=== PATIENT | female | born 1990 | race Caucasian/White ===

== ENCOUNTER → 2018-09-29 14:46 | Outpatient (CLI) | payer OTHER, SELFPAY ==
[2018-09-29 15:54] LABS: Add Manual Diff / Slide Review NO; Basophils Absolute Auto 0 /uL (0-100); Basophils Percent Auto 0.3 % (0-2); Eosinophils Absolute Auto 100 /uL (0-450); Eosinophils Percent Auto 1.1 % (2-4); Hematocrit 39.8 % (36-46); Hemoglobin 13.7 g/dL (12.0-16.0); Lymphocytes Absolute Auto 3100 /uL (1100-4500); Mean Corpuscular HGB Conc 34.3 % (30-36); Mean Corpuscular Hemoglobin 33.3 PG (26-34); Mean Corpuscular Volume 96.8 fL (80-100); Monocytes Absolute Auto 800 /uL (0-900); Monocytes Percent Auto 6.3 % (3-14); Neutrophils Absolute Auto 8900 /uL (1500-7000); Neutrophils Percent Auto 68.3 % (50-75); Platelet Count 339 X10^3/uL (150-400); Red Blood Cell Count 4.11 X10^6/uL (4.0-5.2); White Blood Cell Count 13.1 X10^3/uL (4.5-11.0)
[2018-09-29 15:56] LABS: Appearance Urine UA SL CLOUDY; Bilirubin Urine UA NEGATIVE (NEGATIVE); Color Urine UA YELLOW; Glucose Urine UA NEGATIVE (Negative); Ketones Urine UA 1+ (NEGATIVE); Leukocyte Esterase Urine UA 1+ (NEGATIVE); Nitrite Urine UA NEGATIVE (Negative); Occult Blood Urine UA NEGATIVE (Negative); Protein Urine UA NEGATIVE (Negative); Urobilinogen Urine UA 0.2 E.U./dL (0.2); pH Urine UA 5.5 (4.5-8.0)
[2018-09-29 16:17] LABS: Bacteria Urine Few (2-10); RBC Urine 1-5/HPF (0-5/HPF); Squamous Epithelial Cell Urine 1-5 /HPF (0-5/HPF); WBC Urine 1-5/HPF (0-5/HPF)
[2018-09-29 17:26] LABS: Hepatitis B Surface Antigen NEGATIVE s/c (NEGATIVE)
[2018-09-29 17:35] LABS: HIV 1 and 2 Antibody NEGATIVE (NEGATIVE); Hep C Virus Ab w/Reflex Quant NEGATIVE s/c (NEGATIVE)
[2018-10-01 14:28] LABS: RPR Screen Nonreactive (Nonreactive)
[2018-10-02 18:53] LABS: Clinical Signs and Symptoms NO; Pregnant YES; Travel in Zika Region YES; Zika Virus AB IgM NEGATIVE
== END ==
PROVIDERS: Visit Provider Specialist
DX: Z34.91 Encounter for supervision of normal pregnancy, unspecified, first trimester (principal); Z20.821 Contact with and (suspected) exposure to Zika virus
CPT/HCPCS: 36415; 80055; 81003; 81015; 86703; 86787; 86794; 86803; 86850; 86900; 86901; 87077; 87086; 87662

== ENCOUNTER → 2019-04-06 14:29 | Outpatient (CLI) | payer OTHER, SELFPAY ==
[2019-04-07 15:38] LABS: Strep Grp B PCR NEG for Grp B Strep
== END ==
PROVIDERS: Visit Provider Specialist
DX: Z34.03 Encounter for supervision of normal first pregnancy, third trimester (principal)
CPT/HCPCS: 87653

== ENCOUNTER 2019-05-09 13:21 | Inpatient (IN) | payer OTHER, SELFPAY ==
[2019-05-09] MEDS: LACTATED RINGERS 1,000 ML 100 ML IV (14:20)
[2019-05-09 14:33] LABS: Add Manual Diff / Slide Review NO; Basophils Absolute Auto 100 /uL (0-100); Basophils Percent Auto 0.5 % (0-2); Eosinophils Absolute Auto 100 /uL (0-450); Eosinophils Percent Auto 0.5 % (2-4); Hemoglobin 13.5 g/dL (12.0-16.0); Lymphocytes Absolute Auto 2000 /uL (1100-4500); Mean Corpuscular HGB Conc 35.5 % (30-36); Monocytes Absolute Auto 500 /uL (0-900); Monocytes Percent Auto 4.4 % (3-14); Neutrophils Absolute Auto 8400 /uL (1500-7000); Neutrophils Percent Auto 76.6 % (50-75); Platelet Count 207 X10^3/uL (150-400); Red Blood Cell Count 4.09 X10^6/uL (4.0-5.2); Red Cell Distribution Width 13.2 % (11.6-14.8)
[2019-05-09] MEDS: miSOPROStoL 25 MCG TABLET VAG (14:38)
--- NOTE | 2019-05-09 15:26 | P.HPOB_ITS ---
OB HPI Date/Time Date of admission: 05/09/19 Date Patient Seen: 05/09/19 Time Patient Seen: 15:26 History of Present Condition Chief complaint: labor : 1 Para: 0 Estimated Date of Delivery: 05/08/19 Estimated Gestational Age (weeks): 40 Narrative: Charis Navarro is a 28 year old female admitted for spontan eous rupture membranes without active labor Indications Other reason(s) for admission: Leakage of fluid without actively joseph History of Present care: good care, initiated at week # (8), number of visits (10) and pounds weight gain (14) Dating criteria: based on 1st trimester US only Ultrasounds: normal mid trimester US Obstetrical complications: none Medical complications: none Preadmission Labs Blood type: A (+) positive -: Antibody screen: negative, GBS status: negative, HBsAG: negative, HIV: negative and RPR/VDLR: negative -: Chlamydia screen: not detected and Gonorrhea screen: not detected -: Rubella: immune and Varicella: immune HCAB: negative PAP: Normal Quad screen: Normal 1 hr GTT: 151 3 hr GTT: 1 hr (122), 2 hr (95) and 3 hr (50) Fasting blood glucose: 81 Evaluation Evaluation Baseline heart rate: 120 Variability: Moderate (11-25) monitor accelerations: Present monitor decelerations: Absent Contraction Frequency (minutes): 0 Category of Tracing: I Cervical dilation (cm): 0 Cervical effacement (%): 50 station: -3 Laboratory results: Laboratory Tests 05/09/19 14:20 WBC 11.0 RBC 4.09 Hgb 13.5 Hct 38.0 MCV 93.0 MCH 33.0 MCHC 35.5 RDW 13.2 Plt Count 207 Neut % (Auto) 76.6 H Lymph % (Auto) 18.0 L [place] % (Auto) 4.4 Eos % (Auto) 0.5 L Baso % (Auto) 0.5 Neut # (Auto) 8400 H Lymph # (Auto) 2000 [place] # (Auto) 500 Eos # (Auto) 100 Baso # (Auto) 100 Non-invasive Membranes Rupture Test: positive [facility] Medical History (Updated 05/09/19 @ 16:40 by Cristal Ly MD) Herniated intervertebral disc (Acute ~2013) Social History Smoking Status: Former smoker Meds Home Medications and Allergies Home Medications Medication Instructions Recorded Confirmed Type prenat.vits,alessio,poy-ctse-pucxh 1 tab PO DAILY 09/29/18 09/29/18 History breast pump #1 each 02/09/19 02/09/19 Rx Allergies Allergy/AdvReac Type Severity Reaction Status Date / Time No Known Drug Allergies Allergy Verified 09/29/18 13:31 Review of Systems Review of Systems Narrative: Patient was having some increased contractions. She had some fluid leaking out several times from vagina but then both stopped. Good movement. No headaches, scotomata, epigastric pain. No fevers. ROS Unobtainable: All systems reviewed & are unremarkable except as noted in HPI and below Exam Narrative Exam Narrative: HEENT exam within normal limits. Lungs are clear to aus cultation percussion. Heart is regular rate and rhythm no S3-S4 or murmurs. Abdomen is soft, nontender. Extremities without edema and nontender. Objective Labs Result Diagrams: 05/09/19 14:20 Labs: Laboratory Results - last 24 hr 05/09/19 14:20 WBC 11.0 RBC 4.09 Hgb 13.5 Hct 38.0 MCV 93.0 MCH 33.0 MCHC 35.5 RDW 13.2 Plt Count 207 Neut % (Auto) 76.6 H Lymph % (Auto) 18.0 L [place] % (Auto) 4.4 Eos % (Auto) 0.5 L Baso % (Auto) 0.5 Neut # (Auto) 8400 H Lymph # (Auto) 2000 [place] # (Auto) 500 Eos # (Auto) 100 Baso # (Auto) 100 Assessment and Plan Assessment and Plan Assessment and Plan narrative: 40 week gestation with spontaneous rupture membranes not in active labor and non favorable cervix. Plan is for Cytotec x3 if needed and Pitocin in a.m. if needed. Monitor for signs of infection Time Spent with Patient Total time spent with greater than 50% in coordination of care (as documented) at patient's floor/unit and/or counseling patient:: less than 15 minutes
[2019-05-09 16:07] VITALS: BP 125/71
[2019-05-09 22:01] VITALS: TEMP 35.8
[2019-05-09] MEDS: fentaNYL 100 MCG/2 ML INJ IV (22:01)
[2019-05-09] MEDS: ZOLPIDEM 5 MG TABLET PO (23:47)
[2019-05-10] MEDS: fentaNYL 100 MCG/2 ML INJ IV ×2 (01:51→05:35)
[2019-05-10] MEDS: miSOPROStoL 25 MCG TABLET VAG (02:24)
[2019-05-10] MEDS: OXYTOCIN PREMIX 30 UNIT/500 ML PLAST..BAG IV (09:05)
[2019-05-10] MEDS: LACTATED RINGERS 1,000 ML 100 ML IV (09:12)
[2019-05-10 12:26] LABS: Platelet Count 224 X10^3/uL (150-400)
--- NOTE | 2019-05-10 15:56 | P.PCNOB_ITS ---
Events: Prolonged Rupture of Membrane Labor & Delivery Delivery date: 05/10/19 Intrapartal events: None Cervical ripening method: per misoprostal protocol Induction method: per pitocin protocol Delivery monitor: external FHT and external uterine Route of delivery: L&D Laceration Description: Perineal - 2nd Degree Delivery repair: vicryl (0) and chromic (3 0) Estimated blood loss (mL): 300 Anesthesia type: Epidural Narrative: Patient arrived on Labor and delivery with leakage of fluid but not in active labor. She received Cytotec followed by Pitocin induction. She remained afebrile throughout labor. She received an epidural catheter for pain control. heart tones category 1 to category 2 throughout labor. She had a spontaneous vaginal delivery of a viable female . The infant was placed on the maternal abdomen. After the cord stopped pulsating the cord was clamped, cut, and cord bloods obtained. The placenta delivered spontaneously, intact, with 3 vessels. There were no cervical or vaginal tears. A second-degree perineal tear was repaired in 2 layers. The rectal sphincter was reinforced with [id number] suture of 0 Vicryl x2. The rest of the repair was done with 3 0 chromic suture in the usual 2 layer fashion. Estimated blood loss 300 cc. Both infant and mother doing well. [place] Baby 1: gender: Female Presentation: vertex position: Right Occiput Anterior Placenta delivery description: Spontaneous cord vessel description: 3 Vessels score (1 min): 9 score (5 min): 9 Plan for aftercare: Routine post vaginal delivery
[2019-05-10] MEDS: IBUPROFEN 600 MG TABLET PO (20:47)
[2019-05-11] MEDS: IBUPROFEN 600 MG TABLET PO ×2 (05:18→10:50)
[2019-05-11 05:29] LABS: Add Manual Diff / Slide Review NO; Basophils Absolute Auto 0 /uL (0-100); Basophils Percent Auto 0.3 % (0-2); Eosinophils Absolute Auto 100 /uL (0-450); Eosinophils Percent Auto 0.5 % (2-4); Hematocrit 32.5 % (36-46); Hemoglobin 11.5 g/dL (12.0-16.0); Lymphocytes Absolute Auto 3100 /uL (1100-4500); Lymphocytes Percent Auto 20.4 % (25-40); Mean Corpuscular HGB Conc 35.3 % (30-36); Mean Corpuscular Hemoglobin 33.1 PG (26-34); Mean Corpuscular Volume 93.6 fL (80-100); Monocytes Absolute Auto 1600 /uL (0-900); Monocytes Percent Auto 10.5 % (3-14); Neutrophils Absolute Auto 10300 /uL (1500-7000); Neutrophils Percent Auto 68.3 % (50-75); Platelet Count 197 X10^3/uL (150-400); Red Blood Cell Count 3.48 X10^6/uL (4.0-5.2); White Blood Cell Count 15.1 X10^3/uL (4.5-11.0)
[2019-05-11] MEDS: ACETAMINOPHEN 325 MG TABLET 650 MG PO ×2 (07:43→14:29)
[2019-05-11] MEDS: DOCUSATE 100 MG CAPSULE PO (07:43)
--- NOTE | 2019-05-11 12:20 | PM.OBDS.1 ---
Discharge Providers Provider Date of admission: 05/09/19 13:21 Discharge Date: 05/11/19 Consults: 05/09/19 13:43 Consult to Anesthesiology Urgent Comment: Consulting Provider: Anesthesiologist Reason for consultation: Epidural Has provider been notified: No 05/11/19 15:53 Consult to Pin Machine Tender Routine Comment: Discharge provider: Cristal Ly MD Summary Hospital Course Date Patient Seen: 05/11/19 Time Patient Seen: 12:25 Hospital Course: Patient was sent to Labor and delivery after positive fern test for rupture membranes. She received prostaglandins followed by Pitocin to induce labor. She received an epidural catheter for pain control. heart tones category 1 to category 2 throughout labor. She had a spontaneous vaginal delivery of a viable female weighing 6 lb 6 oz. She had a second-degree tear that was repaired. She did well post . Peripartum Data Infant Delivery Method: Natural Vaginal Laceration description: Perineal - 2nd Degree Procedures: Prostin and Pitocin induction, epidural catheter, spontaneous vaginal delivery, repair of second-degree tear. complications: none [place] 1: Gender: Female Disposition of : home Discharge Diagnosis (1) Vaginal delivery: Status: Acute Status at Discharge Cognitive/behavioral status at discharge: oriented Functional status at discharge: independent ambulation Overall status at discharge: patient is back to baseline Time Spent with Patient Time attestation: Total time spent providing and/or coordinating discharge services: Time spent: Less than 30 minutes Objective Labs Result Diagrams: 05/11/19 05:13 Labs: Laboratory Results - last 24 hr 05/10/19 05/11/19 12:15 05:13 WBC 15.1 H RBC 3.48 L Hgb 11.5 L Hct 32.5 L MCV 93.6 MCH 33.1 MCHC 35.3 RDW 13.0 Plt Count 224 197 Neut % (Auto) 68.3 Lymph % (Auto) 20.4 L [place] % (Auto) 10.5 Eos % (Auto) 0.5 L Baso % (Auto) 0.3 Neut # (Auto) 24343 H Lymph # (Auto) 3100 [place] # (Auto) 1600 H Eos # (Auto) 100 Baso # (Auto) 0 Exam Vital Signs (past 8 hours): Blood pressure 97/62, pulse 63, temperature 98.0? Narrative Exam Narrative: Abdomen is soft, nontender. Uterus is firm, at U, nontender. Repair is intact. Mild lochia. Extremities with out edema and nontender. Patient's blood type is A positive, she is rubella immune, she received Tdap in the 3rd trimester. Discharge Plan Discharge Plan Patient Disposition: Home Discharge orders & Medications Prescriptions: New docusate sodium [DOK] 100 mg Capsule 100 mg PO DAILY Qty: 20 RF: 0 ibuprofen 600 mg Tablet 600 mg PO Q6HR PRN (Reason: Fever/Mild Pain (1-3)) Qty: 30 RF: 0 Continued prenat.vits,alessio,yko-jncq-opxrb tablet 1 tab PO DAILY RF: 0 No Action (DME) breast pump [Pump In Style Advanced] device See Rx Instructions [id number] .MEDSUPPLY Qty: 1 RF: 0 Follow up/Referrals: Cristal Ly MD [Physician] - Diet/Activity/Treatments Diet: Regular Activity: Nothing in vagina for 4 weeks Skin/Wound/Dressing Care Report to your healthcare provider any signs of infection, such as:: chills, fever and increased pain
[2019-05-11 12:32] VITALS: BP 97/62; PULSE 63; RESP 16; TEMP 36.6
== END 2019-05-11 15:40 | disposition home or self-care (01) | DRG 807 ==
PROVIDERS: Anesthesiology; Admitting Provider Specialist; Visit Provider Specialist
DX: O63.0 Prolonged first stage (of labor) (principal); Z37.0 Single live birth; Z3A.40 40 weeks gestation of pregnancy; O70.1 Second degree perineal laceration during delivery
CPT/HCPCS: 01967; 36415; 59050; 59400; 85025; 85049; 86850; 86900; 86901; G0379; J2590; J3010

== ENCOUNTER → 2020-09-20 10:14 | Outpatient (CLI) | payer OTHER, MEDICAID, SELFPAY ==
[2020-09-20 11:04] LABS: Add Manual Diff / Slide Review NO; Basophils Absolute Auto 100 /uL (0-100); Basophils Percent Auto 0.5 % (0-2); Eosinophils Absolute Auto 200 /uL (0-450); Eosinophils Percent Auto 1.6 % (2-4); Hematocrit 38.7 % (36-46); Hemoglobin 13.7 g/dL (12.0-16.0); Lymphocytes Absolute Auto 2500 /uL (1100-4500); Lymphocytes Percent Auto 20.5 % (25-40); Mean Corpuscular HGB Conc 35.4 % (30-36); Mean Corpuscular Hemoglobin 32.3 PG (26-34); Mean Corpuscular Volume 91.3 fL (80-100); Monocytes Absolute Auto 800 /uL (0-900); Monocytes Percent Auto 6.8 % (3-14); Neutrophils Absolute Auto 8500 /uL (1500-7000); Neutrophils Percent Auto 70.6 % (50-75); Platelet Count 328 X10^3/uL (150-400); Red Blood Cell Count 4.23 X10^6/uL (4.0-5.2); Red Cell Distribution Width 12.6 % (11.6-14.8)
[2020-09-20 11:08] LABS: Hemoglobin A1C% w Est Avg Glu 4.6 % (4.0-6.0)
[2020-09-20 12:08] LABS: Hepatitis B Surface Antigen NEGATIVE s/c (NEGATIVE); Rubella Antibody IgG 14.4 IU/mL (>15)
[2020-09-20 12:24] LABS: HIV 1 & 2 Ab/Ag 4th Gen Combo NEGATIVE (NEGATIVE); Hep C Virus Ab w/Reflex Quant NEGATIVE s/c (NEGATIVE)
[2020-09-20 12:47] LABS: Appearance Urine UA SL CLOUDY; Bilirubin Urine UA NEGATIVE (NEGATIVE); Color Urine UA YELLOW; Glucose Urine UA NEGATIVE (Negative); Ketones Urine UA NEGATIVE (NEGATIVE); Leukocyte Esterase Urine UA 3+ (NEGATIVE); Nitrite Urine UA NEGATIVE (Negative); Occult Blood Urine UA NEGATIVE (Negative); Protein Urine UA NEGATIVE (Negative); Specific Gravity Urine UA 1.015 (1.000-1.035); Urobilinogen Urine UA 0.2 E.U./dL (0.2)
[2020-09-20 12:50] LABS: RBC Urine None Seen (0-5/HPF)
[2020-09-20 12:56] LABS: Amorphous Sediment Urine 1+; Bacteria Urine Few (2-10); Squamous Epithelial Cell Urine 5-10 /HPF (0-5/HPF); WBC Urine 5-10/HPF (0-5/HPF)
[2020-09-21 07:39] LABS: RPR Screen Non Reactive (Non Reactive)
[2020-09-21 08:09] LABS: Varicella IgG Antibody 1039 index (Immune >165)
== END ==
PROVIDERS: Referring Provider Specialist; Visit Provider Specialist
DX: Z34.81 Encounter for supervision of other normal pregnancy, first trimester (principal)
CPT/HCPCS: 36415; 80055; 81003; 81015; 83036; 86787; 86803; 86850; 86900; 86901; 87086; 87389

== ENCOUNTER → 2020-12-12 09:45 | Outpatient (CLI) | payer OTHER, SELFPAY ==
--- NOTE | 2020-12-12 09:46 | DI.US.S_ITS ---
PROCEDURE: US OB >= 14 WEEKS FETUS INDICATIONS: ANATOMY OUTSIDE/PRIOR DATING DATA: Last menstrual period (LMP): 07/17/2020. LMP-based estimated date of delivery (JOHNNY): 04/23/2021. First dating scan (date and location): 09/20/2020. Estimated date of delivery (JOHNNY) from first dating scan: . TECHNIQUE: Real-time scanning was performed of the fetus, with image documentation and biometric measurements. COMPARISON: [facility], , OB <= 14 WEEKS FETUS, 09/20/2020, 10:07. FINDINGS: General: A single living intrauterine gestation is present. Presentation: Breech Placenta: Placental position is posterior, without previa. Amniotic fluid index: 14.9 cm, normal range is 5-24 cm. heart rate: 143 beats per minute. Maternal cervical canal: 5.4 cm long. Normal lower limit is 2.5 cm. biometrics: Biparietal diameter: 5.1 cm, 21 weeks, 4 days Head circumference: 19.2 cm, 21 weeks, 3 days Abdominal circumference: 16.1 cm, 21 weeks, 1 day Femur length: 3.4 cm, 20 weeks, 5 day Estimated gestational age from initial scan: 21 weeks, 0 day Composite gestational age from present scan: 21 weeks, 2 days Estimated weight and percentile: 395 grams, 47 percent Measurement variability for biometric dating: +/- 7 days from 14 weeks to 15 weeks 6 days gestation, +/- 10 days from 16 weeks to 21 weeks 6 days gestation, +/- 2 weeks from 22 weeks to 27 weeks 6 days gestation, +/- 3 weeks for 28 weeks gestation or later. weight reference: 4500 g or EFW >90/95% is considered macrosomia or large for gestational age. EFW <10% is small for gestational age. EFW 5% or less is considered intra-uterine growth restriction. Anatomic survey: Neuro: Ventricles are non-dilated at less than 10 mm. Cisterna magna is normal at 3-11 mm. Cerebellum is normal in size and morphology. Nuchal skin fold: Normal at less than 6 mm between 14-21 weeks gestational age. Face: Nose and lips, facial profile are normal. Spine: No evidence for spina bifida. Heart: 4-chambered heart is present, with normal ventricular outflow tracts. Diaphragm: Diaphragm is intact. Stomach: Left-sided stomach is present. Kidneys: No hydronephrosis. Normal is less than 5 mm in 2nd trimester, less than 7 mm in 3rd trimester. Cord: 3-vessel cord has orthotopic insertion. Bladder: Normal in size. Extremities: All 4 extremities identified. IMPRESSION: 1. Single live intrauterine with fetus in breech presentation. heart rate is 143 beats per minute. 2. Normal amount of amniotic fluid and normal growth. Estimated weight is at 47th percentile. 3. Normal anatomic survey. Dictated by: Umair Huber M.D. on 12/12/2020 at 11:34 Approved by: Umair Huber M.D. on 12/12/2020 at 11:38
== END ==
PROVIDERS: Referring Provider Specialist; Visit Provider Specialist
DX: Z34.82 Encounter for supervision of other normal pregnancy, second trimester (principal); Z3A.20 20 weeks gestation of pregnancy
CPT/HCPCS: 76811

== ENCOUNTER → 2021-04-03 09:53 | Outpatient (CLI) | payer OTHER, SELFPAY ==
[2021-04-04 08:39] LABS: Strep Grp B PCR NEG for Grp B Strep
== END ==
PROVIDERS: Visit Provider Specialist
DX: Z34.83 Encounter for supervision of other normal pregnancy, third trimester (principal); Z3A.37 37 weeks gestation of pregnancy
CPT/HCPCS: 87653

== ENCOUNTER 2021-04-18 19:59 | Inpatient (IN) | payer OTHER, SELFPAY ==
[2021-04-18 20:36] VITALS: BP 118/75
[2021-04-18 21:37] LABS: Add Manual Diff / Slide Review NO; Basophils Absolute Auto 100 /uL (0-100); Basophils Percent Auto 0.5 % (0-2); Eosinophils Absolute Auto 100 /uL (0-450); Eosinophils Percent Auto 0.6 % (2-4); Hematocrit 35.5 % (36-46); Hemoglobin 12.2 g/dL (12.0-16.0); Lymphocytes Absolute Auto 2700 /uL (1100-4500); Lymphocytes Percent Auto 20.5 % (25-40); Mean Corpuscular HGB Conc 34.4 % (30-36); Mean Corpuscular Hemoglobin 32.4 PG (26-34); Mean Corpuscular Volume 94.2 fL (80-100); Monocytes Absolute Auto 800 /uL (0-900); Monocytes Percent Auto 6.2 % (3-14); Neutrophils Absolute Auto 9500 /uL (1500-7000); Neutrophils Percent Auto 72.2 % (50-75); Platelet Count 198 X10^3/uL (150-400); Red Blood Cell Count 3.77 X10^6/uL (4.0-5.2); Red Cell Distribution Width 13.4 % (11.6-14.8); White Blood Cell Count 13.1 X10^3/uL (4.5-11.0)
[2021-04-18] MEDS: DINOPROSTONE VAG (CERVIDIL) 10 MG VAG (21:40)
[2021-04-18 22:27] LABS: COVID19 -Nasal RAPID Negative (Negative)
[2021-04-18] MEDS: ZOLPIDEM 5 MG TABLET PO (23:00)
[2021-04-19] MEDS: ACETAMINOPHEN 325 MG TABLET 650 MG PO ×2 (04:48→16:48)
--- NOTE | 2021-04-19 05:24 | PM.OBHP.1 ---
OB HPI Date/Time Date of admission: 04/18/21 Date Patient Seen: 04/19/21 Time Patient Seen: 05:24 History of Present Condition Chief complaint: induction : 2 Para: 1 Estimated Date of Delivery: 04/24/21 Estimated Gestational Age (weeks): 39 Narrative: Charis Navarro is a 30 year old female admitted for induction for distance from the hospital Indications Indication for induction OB: maternal distance History of Present care: good care, initiated at week # (9), number of visits (12) and pounds weight gain (11) Dating criteria: LMP confirmed by 1st trimester US Ultrasounds: normal mid trimester US Obstetrical complications: none Medical complications: none Preadmission Labs Blood type: A (+) positive -: Antibody screen: negative, GBS status: negative, HBsAG: negative, HIV: negative and RPR/VDLR: negative -: Chlamydia screen: not detected and Gonorrhea screen: not detected -: Rubella: not immune and Varicella: immune HCAB: negative 1 hr GTT: 135 Prior (ies) History: 05/10/2019 40 week gestation 6 lb 6 oz female vaginal Evaluation Evaluation Baseline heart rate: 120 Variability: Moderate (11-25) monitor accelerations: Present Monitor Decelerations: Absent Contraction Frequency (minutes): 3 Uterine Contraction Intensity: Mild Category of Tracing: Reactive Status: Category l Dilation (cm): 0 Effacement (%): 50 Dilation: Closed Effacement: 40-50% station: -2 Position of cervix: mid Consistency: medium Leon score: 4 PFSH Medical History (Updated 09/13/20 @ 11:28 by Beronica Chandler RN) Asthma (~1994) Closed right ankle fracture (~1998) Herniated intervertebral disc (~2013) anxiety (~04/2019) depression (~04/2019) Vaginal delivery Wrist fracture, left (~2001) Surgical History (Updated 09/13/20 @ 11:18 by Beronica Chandler RN) [place] teeth extracted (~2004) Family History (Updated 09/13/20 @ 11:45 by Beronica Chandler RN) Mother Hypertension Diabetes mellitus Father Diabetes mellitus Grandmother No problems noted. Grandfather Myocardial infarction Grandmother No problems noted. Grandfather Staphylococcal infection Social History marital status: number of children: 1 household members: spouse, family ([id number]) and children lives independently: Yes caregiver/support person: No housing: house pets and animals: Yes (1 cat: aware. ) education level: college (BS [employer]) occupational status: employed ([employer]) current occupational exposures/hazards: No special eze needs: No seatbelt use: always do you feel safe at home: Yes Smoking Status: Former smoker Tobacco: How many years used: 4 quit status: has quit before (Quit in 2019. ) second hand exposure: No alcohol intake: former (Pre-: glass of wine with dinner, not too much or too often.) substance use type: does not use during the past year weight has: increased > 10 lbs well-balanced diet: daily or most days daily servings fruits/ve-4 caffeine: Yes (1 cup/day. Quit Diet Coke. ) Type(s) of exercise: walking (1.5-2 miles daily), regular exercise (Rowing machine. 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 ) frequency: daily duration: 30-45 minutes/day Meds Home Medications and Allergies Home Medications Medication Instructions Recorded Confirmed Type prenat.vits,alessio,uqs-qyhy-utfnr 1 tab PO DAILY 09/29/18 04/18/21 History Double Electric breast Pump and #1 ea 02/27/21 04/18/21 Rx Supplies Allergies Allergy/AdvReac Type Severity Reaction Status Date / Time No Known Drug Allergies Allergy Verified 09/20/20 09:50 Review of Systems Review of Systems Narrative: No headaches, scotomata, epigastric pain. Good movement. No leakage of fluid. No labor symptoms. OB Exam Narrative Exam Narrative: Blood pressure 98/55, temperature 36.6?, pulse of 80 HEENT exam within normal limits, lungs are clear to auscultation and percussion. Heart is regular rate and rhythm no S3-S4 murmurs. Abdomen is gravid. Fetus is vertex. Extremities without edema and nontender. Objective Labs Result Diagrams: 04/18/21 21:20 Labs: Laboratory Results - last 24 hr 04/18/21 04/18/21 04/18/21 21:20 21:20 21:20 WBC 13.1 H RBC 3.77 L Hgb 12.2 Hct 35.5 L MCV 94.2 MCH 32.4 MCHC 34.4 RDW 13.4 Plt Count 198 Neut % (Auto) 72.2 Lymph % (Auto) 20.5 L [place] % (Auto) 6.2 Eos % (Auto) 0.6 L Baso % (Auto) 0.5 Neut # (Auto) 9500 H Lymph # (Auto) 2700 [place] # (Auto) 800 Eos # (Auto) 100 Baso # (Auto) 100 SARS-CoV-2 (PCR) Negative Blood Type A Positive Antibody Screen Negative Assessment and Plan Assessment and Plan Assessment and Plan narrative: 39 week gestation living distance from the hospital who was admitted for induction with Cervidil followed by Pitocin. Anticipate vaginal delivery.
[2021-04-19] MEDS: LACTATED RINGERS 1,000 ML 100 ML IV ×2 (11:40→19:27)
[2021-04-19] MEDS: OXYTOCIN PREMIX 30 UNIT/500 ML PLAST..BAG IV (11:41)
--- NOTE | 2021-04-19 14:41 | PM.OBPNLAB ---
Date/Time Date Patient Seen: 04/19/21 Time Patient Seen: 14:41 Pain Control Pain control: tolerating well Pelvic Exam Effacement (%): 50 station: -2 Contractions Contractions on admission: regular Monitor mode: External Pitocin rate (mU/min): 15 Contraction frequency (min): 3 Contraction duration (min): 1 Contraction pattern: Regular Contraction intensity: Moderate Status status: Category l Heart Rate Baseline: 125 Monitor Accelerations: Present Monitor Decelerations: Absent Monitor Variability: Moderate Assessment and Plan Assessment: induction ongoing Plan: continuous present management
[2021-04-19] MEDS: fentaNYL 100 MCG/2 ML INJ IV (17:30)
--- NOTE | 2021-04-19 19:44 | PM.AN.REGBLK ---
Regional Block Pre-procedure Procedure: Continuous Lumbar Epidural for L&D Attending OB provider: Cristal Ly PMH/ROS narrative: Hx: No personal or family history of anesthesia problems. PSH/Anesthesia history narrative: previous epidural with good result Exam narrative: MP2, RRR, CTAB ASA Class: II Labs: Hct 35.5 % (36-46) L 04/18/21 21:20 Plt Count 198 X10^3/uL (150-400) 04/18/21 21:20 Medications: Current Medications Generic Name Dose Route Start Last Admin Trade Name Freq PRN Reason Stop Dose Admin Acetaminophen 650 mg 04/18/21 20:15 04/19/21 16:48 Acetaminophen 325 Mg Tablet PO 650 mg Q4HR PRN Administration Fever/Mild Pain (1-3) Calcium Carbonate 1,000 mg 04/18/21 20:15 Calcium Carbonate 500 Mg Tab PO Q2H PRN Dyspepsia Calcium Carbonate 1,000 mg 04/18/21 20:15 Calcium Carbonate 500 Mg Tab PO Q2HR PRN Dyspepsia Carboprost Tromethamine 250 mcg 04/18/21 20:15 Carboprost 250 Mcg/Ml Ampul IM Q90M PRN Bleeding Fentanyl 100 mcg 04/18/21 20:15 04/19/21 17:30 Fentanyl 100 Mcg/2 Ml Inj IV 100 mcg Q1H PRN Administration Pain, Severe (7-10) Oxytocin/Lactated Ringer's 30 unit in 500 mls @ 3 mls/hr 04/18/21 20:15 04/19/21 11:41 Oxytocin Premix IV 3 milliunit/min TITRATE PEDRO 3 mls/hr Administration Protocol 3 MILLIUNIT/MIN Lactated Ringer's 1,000 mls @ 100 mls/hr 04/18/21 20:15 04/19/21 19:27 Lactated Ringers IV 100 mls/hr CONT PEDRO Administration Oxytocin/Lactated Ringer's 30 unit in 500 mls @ 200 mls/hr 04/18/21 20:15 Oxytocin Premix IV CONT PRN Bleeding Protocol Tranexamic Acid 1,000 mg/ 100 mls @ 200 mls/hr 04/18/21 20:15 Sodium Chloride IV NOW PRN Bleeding Methylergonovine Maleate 0.2 mg 04/18/21 20:15 Methylergonovine 0.2 Mg Tablet PO Q6HR PRN Heavy Bleeding Methylergonovine Maleate 0.2 mg 04/18/21 20:15 Methylergonovine 0.2 Mg/Ml Vial IM NOW PRN Bleeding Misoprostol 400 mcg 04/18/21 20:15 Misoprostol 200 Mcg Tablet SL NOW PRN Bleeding Misoprostol 1,000 mcg 04/18/21 20:15 Misoprostol 200 Mcg Tablet NV NOW PRN Bleeding Misoprostol 800 mcg 04/18/21 20:15 Misoprostol 200 Mcg Tablet NV NOW PRN Bleeding Morphine Sulfate 4 mg 04/18/21 20:15 Morphine 4 Mg/Ml Inj IV Q4HR PRN Pain, Severe (7-10) Naloxone HCl 0.2 mg 04/18/21 20:15 Naloxone 0.4 Mg/Ml Vial IV Q2MIN PRN Opiate Reversal Ondansetron HCl 4 mg 04/18/21 20:15 Ondansetron 4 Mg/2 Ml Inj IV Q4HR PRN Nausea And Vomiting Oxytocin 10 unit 04/18/21 20:15 Oxytocin 10 Unit/Ml Vial IM NOW PRN Bleeding Zolpidem Tartrate 5 mg 04/18/21 20:15 04/18/21 23:00 Zolpidem 5 Mg Tablet PO 5 mg BEDTIME PRN Administration Sleep Allergies: Allergies Allergy/AdvReac Type Severity Reaction Status Date / Time No Known Drug Allergies Allergy Verified 09/20/20 09:50 Procedure Insertion date: 04/19/21 Insertion time: 19:28 Prep/Local: betadine x3 (chloroprep) and 1% lidocaine Interspace: L3-4 Patient position: sitting Needle: 18 gauge Tim (with 27G pencil point needle-through needle for IT dose) Loss of resistance with: saline (with air bubble) SHAAN at (cm): 6 Catheter placed at SKIN (cm): 11 Catheter in SPACE (cm): 5 Insertion: Yes CSF, No Blood, No Paresthesia with insertion, No Paresthesia with injection and No Test dose reaction Initial Medications TEST DOSE time: 19:28 TEST DOSE: 1.5% lidocaine with epinephrine 1:200k (mL): 5 (3mL initial test dose, 2mL as part of first bolus) BOLUS DOSE time: 19:30 BOLUS DOSE (mL): 2 BOLUS DOSE med: other (10mcg fentanyl intrathecally, 90mcg fentanyl via epidural catheter) Infusion INFUSION: 0.0625% bupivacaine and with fentanyl 2 mcg/mL Initial rate (mL/hr): 12 (with bolus of 5mL Q15min lockout) Subsequent interventions: 2233 - increased pain low on the right. Has been using boluses. Bupi 0.25% 5mL given. 2245 - improvement but not fully comfortable. Bupi 0.25% 5mL given. Post-procedure Anesthesia time START: 19:12 Anesthesia time END: 00:32 Post-procedure Anesthesia Assessment: Yes CV function: HR/BP stable, Yes Resp function: RR/sat/airway adequate, Yes Post-op hydration adequate, Yes Pain control adequate, Yes Nausea & vomiting absent, Yes Temperature > 36 C, Yes Mental status appropriate and No Anesthesia complications
--- NOTE | 2021-04-19 20:54 | PM.OBPNLAB ---
Date/Time Date Patient Seen: 04/19/21 Time Patient Seen: 20:55 Pain Control Pain control: epidural Pelvic Exam Dilation (cm): 5 Effacement (%): 90 station: -2 Amniotic membrane status: Ruptured (clear fluid) Contractions Contractions on admission: regular Monitor mode: External Pitocin rate (mU/min): 20 Contraction frequency (min): 3 Contraction pattern: Regular Contraction intensity: Moderate Status status: Category ll Heart Rate Baseline: 130 Monitor Accelerations: Present Monitor Decelerations: Early Monitor Variability: Moderate Assessment and Plan Assessment: active labor Plan: continuous present management
--- NOTE | 2021-04-20 00:56 | PM.OBPRVD ---
Labor & Delivery Delivery date: 04/20/21 Intrapartal Events: None Cervical ripening method: per Cervidil protocol Induction method: per pitocin protocol Delivery augmentation: rupture of membranes Delivery monitor: external FHT and external uterine Route of delivery: L&D Laceration Description: Perineal - 2nd Degree Delivery repair: chromic (3 0) Estimated blood loss (mL): 350 Anesthesia Type: Epidural Narrative: Patient arrived on Labor and delivery for Cervidil ripening for distance from hospital. She had Pitocin began after 12 hours of Cervidil. heart tones category 1 to category 2 throughout labor. Patient received an epidural catheter for pain control. She delivered spontaneously, over an intact perineum. The viable male was placed on the maternal abdomen. After cord stopped pulsating the cord was clamped, cut, and cord bloods obtained. There were no cervical or vaginal tears. A second-degree perineal tear was repaired in 2 layers with 3 0 chromic suture. Estimated blood loss 350 cc. Both baby and mother doing well. Baby 1: Infant gender: Male Presentation: vertex Position: Right Occiput Transverse Placenta delivery description: Spontaneous Cord Vessel Description: 3 Vessels score (1 min): 9 score (5 min): 9 Plan for aftercare: Routine care
[2021-04-20] MEDS: ACETAMINOPHEN 325 MG TABLET 650 MG PO ×3 (04:49→20:41)
[2021-04-20] MEDS: LANOLIN OINT 7 GM 1 APPLIC TOP (04:50)
[2021-04-20] MEDS: IBUPROFEN 600 MG TABLET PO ×4 (04:50→23:37)
[2021-04-20] MEDS: DERMOPLAST SPRAY 20% 60 ML 1 SPRAY TOP (04:51)
[2021-04-20] MEDS: METHYLERGONOVINE 0.2 MG TABLET PO (07:49)
[2021-04-20] MEDS: OXYTOCIN PREMIX 30 UNIT/500 ML PLAST..BAG 200 UNIT IV (08:04)
[2021-04-20] MEDS: DOCUSATE 100 MG CAPSULE PO (08:52)
[2021-04-20] MEDS: miSOPROStoL 200 MCG TABLET 400 MCG SL (08:54)
--- NOTE | 2021-04-20 11:04 | PM.OBPN.1 ---
Subjective - OB Subjective Patient comments: no complaints [place] baby status: nursing well feeding status: exclusively breast feeding Date Patient Seen: 04/20/21 Time Patient Seen: 11:04 Interval history: day 1 doing well. No headaches, scotomata, epigastric pain. Patient is ambulatory. No nausea. Exam Vital Signs (past 8 hours): Blood pressure 108/54, pulse of 57, temperature 97.7? Narrative Exam Narrative: Patient's abdomen is soft, nontender. Uterus is firm, at U, nontender. Moderate lochia. Extremities without edema and nontender. Objective Labs Result Diagrams: 04/18/21 21:20 Assessment & Plan Plan day: 1 plan OB: routine care Comments: Monitor bleeding. Home in a.m. if stable. Time Spent With Patient Time: Total time spent is greater than 50% in coordination of care (as documented) at patient's floor/unit and/or counseling patient: Time with patient: less than 15 minutes
[2021-04-20] MEDS: ONDANSETRON 4 MG/2 ML INJ IV (13:51)
[2021-04-21] MEDS: ACETAMINOPHEN 325 MG TABLET 650 MG PO (05:28)
[2021-04-21] MEDS: IBUPROFEN 600 MG TABLET PO (05:28)
[2021-04-21 07:33] LABS: Add Manual Diff / Slide Review NO; Basophils Absolute Auto 100 /uL (0-100); Basophils Percent Auto 0.5 % (0-2); Eosinophils Absolute Auto 100 /uL (0-450); Eosinophils Percent Auto 0.7 % (2-4); Hematocrit 32.2 % (36-46); Hemoglobin 11.3 g/dL (12.0-16.0); Lymphocytes Absolute Auto 2800 /uL (1100-4500); Lymphocytes Percent Auto 23.5 % (25-40); Mean Corpuscular HGB Conc 35.1 % (30-36); Mean Corpuscular Hemoglobin 32.7 PG (26-34); Mean Corpuscular Volume 93.2 fL (80-100); Monocytes Absolute Auto 800 /uL (0-900); Monocytes Percent Auto 6.5 % (3-14); Neutrophils Absolute Auto 8200 /uL (1500-7000); Neutrophils Percent Auto 68.8 % (50-75); Platelet Count 139 X10^3/uL (150-400); Red Blood Cell Count 3.46 X10^6/uL (4.0-5.2); Red Cell Distribution Width 13.7 % (11.6-14.8); White Blood Cell Count 11.9 X10^3/uL (4.5-11.0)
--- NOTE | 2021-04-21 08:14 | PM.OBDS.1 ---
Discharge Providers Provider Date of admission: 04/18/21 19:59 Discharge Date: 04/21/21 Primary care physician: Doctor Nickie MD Consults: 04/18/21 20:15 Consult to Anesthesiology Urgent Comment: Consulting Provider: Anesthesiologist Reason for consultation: Epidural Has provider been notified: No 04/21/21 00:54 Consult to Category Director Routine Comment: Discharge provider: Cristal Ly MD Summary Hospital Course Date Patient Seen: 04/21/21 Time Patient Seen: 08:14 Diagnoses: 39 week gestation with spontaneous vaginal delivery Hospital Course: Patient arrived on Labor and delivery for induction for distance from the hospital. She received Cervidil, Pitocin and an epidural catheter. She had a spontaneous vaginal delivery with repair of a second-degree perineal tear. She is breast-feeding without difficulty. She is urinating and ambulating well. Her bleeding is under control. Peripartum Data Infant Delivery Method: Natural Vaginal Laceration Description: Perineal - 2nd Degree Procedures: Cervidil followed by Pitocin induction, epidural catheter, spontaneous vaginal delivery, repair of second-degree perineal tear complications: none 1: Gender: Male Disposition of : home Discharge Diagnosis (1) Vaginal delivery: Status: Acute Status at Discharge Cognitive/behavioral status at discharge: oriented Functional status at discharge: independent ambulation Overall status at discharge: patient is progressing back to baseline Time Spent with Patient Time attestation: Total time spent providing and/or coordinating discharge services: Time spent: Less than 30 minutes Objective Labs Result Diagrams: 04/21/21 07:25 Labs: Laboratory Results - last 24 hr 04/21/21 07:25 WBC 11.9 H RBC 3.46 L Hgb 11.3 L Hct 32.2 L MCV 93.2 MCH 32.7 MCHC 35.1 RDW 13.7 Plt Count 139 L Neut % (Auto) 68.8 Lymph % (Auto) 23.5 L [place] % (Auto) 6.5 Eos % (Auto) 0.7 L Baso % (Auto) 0.5 Neut # (Auto) 8200 H Lymph # (Auto) 2800 [place] # (Auto) 800 Eos # (Auto) 100 Baso # (Auto) 100 Exam Vital Signs (past 8 hours): Blood pressure 106/67, pulse 77, temperature 97.6? Narrative Exam Narrative: Abdomen is soft, nontender. Uterus is firm, at U, nontender. Mild lochia. Extremities without edema and nontender. Patient's blood type is A positive. She is rubella nonimmune so will receive the rubella vaccine prior to discharge. She has received the Tdap in the 3rd trimester. Discharge Plan Discharge Plan Patient Disposition: Home Discharge orders & Medications Prescriptions: Continued prenat.vits,alessio,ymq-tmcl-nstyy tablet 1 tab PO DAILY 0RF (DME) Double Electric breast Pump and Supplies See Rx Instructions .ROUTE .MEDSUPPLY Qty: 1 0RF Rx Instructions: Use electric breast pump and supplies as directed for 99 months. JOHNNY 04/23/21. Follow up/Referrals: Cristal Ly MD [Physician] - 05/15/21 1:00 pm (in Thursday) Doctor Fu MD [Primary Care Provider] - Diet/Activity/Treatments Diet: Regular Activity: Nothing in vagina for 6 weeks Discharge Data Primary Care Provider: Doctor Nickie
[2021-04-21 08:23] VITALS: BP 106/67; PULSE 77; RESP 16; TEMP 36.4
[2021-04-21] MEDS: MEASLES,MUMPS,RUBELLA VACC/PF 0.5 ML VIAL SUBCUT (08:31)
[2021-04-21] MEDS: DOCUSATE 100 MG CAPSULE PO (08:31)
== END 2021-04-21 09:14 | disposition home or self-care (01) | DRG 807 ==
PROVIDERS: Admitting Provider Specialist; Referring Provider Specialist; Visit Provider Specialist
DX: O70.1 Second degree perineal laceration during delivery (principal); Z37.0 Single live birth; Z3A.39 39 weeks gestation of pregnancy; Z20.822 Contact with and (suspected) exposure to COVID-19
CPT/HCPCS: 01967; 36415; 59050; 59200; 59400; 85025; 86850; 86900; 86901; 87635; C9803; G0379; J2405; J2590; J3010; S0191